=== PATIENT | male | born 1945 | race African-American/Black ===

== ENCOUNTER 2021-09-06 13:02 | Emergency (ER) | payer BC, OTHER ==
[2021-09-06 13:21] VITALS: BP 155/72; PULSE 62; TEMP 97.9; BMI 26.7
[2021-09-06] MEDS ORDERED: ACETAMINOPHEN 500 MG TABLET (FP) PO ONE (13:39)
[2021-09-06] MEDS ORDERED: KETOROLAC TROMETHAMINE 30 MG/1 ML VIAL IM ONE (13:39)
[2021-09-06] MEDS ORDERED: ACETAMINOPHEN 500 MG TABLET (FP) ONE (13:42)
[2021-09-06] MEDS ORDERED: KETOROLAC TROMETHAMINE 30 MG/1 ML VIAL ONE (13:42)
== END 2021-09-06 15:03 | disposition home or self-care (01) ==
LOC: JERFT 13:02
PROC: 3E0233Z Introduction of Anti-inflammatory into Muscle, Percutaneous Approach (ICD-10-PCS; principal; 2021-09-06)
DX: S42.155A Nondisplaced fracture of neck of scapula, left shoulder, initial encounter for closed fracture (principal); W19.XXXA Unspecified fall, initial encounter; Y92.89 Other specified places as the place of occurrence of the external cause
CPT/HCPCS: 73030-TC-LT-FY; 73070-TC-LT-FY; 99284-25